=== PATIENT | male | born 1960 | race Caucasian/White ===

== ENCOUNTER 2017-06-14 15:52 | Emergency (ER) | payer OTHER ==
[2017-06-14 16:07] VITALS: BP 164/97
[2017-06-14] MEDS ORDERED: LIDOCAINE 1%-EPI 1:100000 20 ML MDV SUBQ STA (16:09)
[2017-06-14] MEDS ORDERED: TETANUS/DIPHTHERIA/PERTUSSIS 0.5 ML SYRINGE IM ONE (16:12)
[2017-06-14] MEDS ORDERED: BACITRACIN OINT TOP STA (16:24)
--- NOTE | 2017-06-14 16:25 | ED Physician Documentation ---
PD HPI LOWER EXT INJURY - Stated complaint Stated Complaint: R KNEE LAC - Chief complaint Chief Complaint: Laceration - History obtained from History obtained from: Patient - History of Present Illness PD HPI LOW EXT INJURY LOCATION: Right, Knee Type of injury: Laceration Where injury occurred: Work Timing - onset: How many hours ago (1) Timing - duration: Hours (1) Timing - details: Abrupt onset Pain level max: 5 Pain level now: 1 Improved by: Rest Worsened by: Moving, Palpating Associated symptoms: No: Weakness, Numbness, Tingling, Swelling Similar symptoms before: Has not had sx before Recently seen: Not recently seen Review of Systems Neurologic: denies: Focal weakness, Numbness PD PAST MEDICAL HISTORY - Past Medical History Past Medical History: No - Past Surgical History Past Surgical History: Yes HEENT: Other - Present Medications Home Medications: Ambulatory Orders Medication Instructions Recorded Confirmed No Known Home Medications [No 06/14/17 06/14/17 Known Home Medications] - Allergies Allergies/Adverse Reactions: Allergies Allergy/AdvReac Type Severity Reaction Status Date / Time No Known Drug Allergies Allergy Verified 06/14/17 16:00 - Social History Does the pt smoke?: No Smoking Status: Never smoker Does the pt drink ETOH?: Yes Does the pt have substance abuse?: No - Immunizations Immunizations are current?: No Immunizations: TDAP >10years/unknown - POLST Patient has POLST: No PD ED PE NORMAL - Vitals Vital signs reviewed: Yes - General General: Alert and oriented X 3, No acute distress - Derm Derm: Warm and dry - Extremities Extremities: Other (R knee - 5cm flap laceration, deep, undermined. NVI. tendon and joint capsule intact. ) - Neuro Neuro: Alert and oriented X 3 Results - Vitals Vitals: Vital Signs - 24 hr 06/14/17 16:00 Temperature 36.9 C Heart Rate 87 Respiratory 20 Rate Blood Pressure 164/97 H O2 Saturation 97 Oxygen O2 Source Room air Procedures - Laceration (location) R knee Length in cm: 5 Wound type: Irregular, Flap, Into subcut fat, Clean Neurovascular status: Sensory intact, Motor intact, Vascular intact Tendon involvement: Tendon intact Anesthesia: Lidocaine 1% with epi Wound Preparation: Irrigated copiously NS (1L) Skin layer closure: Reanna Other: Patient tolerated well, No complications, Neurovascular intact, Tetanus booster given (tdap) Complexity: Simple PD MEDICAL DECISION MAKING - ED course Complexity details: reviewed results, re-evaluated patient, considered differential, d/w patient ED course: Patient with a laceration to the R knee. skin removed and wound closed. Tolerated well. Warnings of infection and instructions on wound care given at bedside. Also counseled on how to minimize scarring. Patient counseled regarding signs and symptoms for which I believe and urgent re-evaluation would be necessary. Patient with good understanding of and agreement to plan and is comfortable going home at this time This document was made in part using voice recognition software. While efforts are made to proofread this document, sound alike and grammatical errors may occur. L [employer] I paperwork filled out. Departure - Departure Disposition: 01 Home, Self Care Clinical Impression: Laceration of knee Qualifiers: Encounter type: initial encounter Laterality: right Qualified Code(s): S81.011A - Laceration without foreign body, right knee, initial encounter Condition: Good Instructions: ED Laceration Ext Sutr Stap Tape Follow-Up: your,doctor or here in 2 weeks for staple removal [Other] Comments: Return here or follow up with your doctor in 2 weeks for staple removal. Return if you notice redness, swelling, or drainage from the wound. You were given a tetanus shot today. Forms: Activity restrictions Discharge Date/Time: 06/14/17 17:05
--- NOTE | 2017-06-15 10:47 | ED Physician Documentation ---
ED Addendum - Addendum Addendum: 06/15/17 10:46 The patient called to ask for a work release note. His employer will not let him return to work without a note stating he is medically clear. I agreed to write a work release note for him.
== END 2017-06-14 17:05 | disposition home or self-care (01) ==
LOC: ED 15:52
DX: S81.011A Laceration without foreign body, right knee, initial encounter (principal); W22.09XA Striking against other stationary object, initial encounter; Y99.0 Civilian activity done for income or pay; Z23 Encounter for immunization
CPT/HCPCS: 12002; 90471; 90715; 99282; 99283; A9270; 1040M

== ENCOUNTER 2017-06-29 10:42 | Emergency (ER) | payer OTHER ==
[2017-06-29 10:50] VITALS: BP 148/97
--- NOTE | 2017-06-29 11:14 | ED Physician Documentation ---
PD HPI WOUND RECHECK - Stated complaint Stated Complaint: SUTURE REMOVAL - Chief complaint Chief Complaint: Wound - Histroy obtained from History obtained from: Patient - History of Present Illness Location: Right Lower Extremity Recently seen: Emergency Dept (12 days ago.) - Additional information Additional information: The patient is a 56-year-old male who cut his right lower extremity in the infrapatellar region 2 wweks ago, on a metal hitch of a truck. He was seen here and the laceration was repaired at that time. He presents today for suture removal. He denies any complications with the wound. Review of Systems Constitutional: denies: Fever Cardiac: denies: Pedal edema, Calf pain Skin: reports: Laceration (s) Neurologic: denies: Focal weakness, Numbness PD PAST MEDICAL HISTORY - Past Medical History Past Medical History: No Endocrine/Autoimmune: None - Past Surgical History Past Surgical History: Yes HEENT: Other - Present Medications Home Medications: Ambulatory Orders Medication Instructions Recorded Confirmed No Known Home Medications [No 06/14/17 06/14/17 Known Home Medications] - Allergies Allergies/Adverse Reactions: Allergies Allergy/AdvReac Type Severity Reaction Status Date / Time No Known Drug Allergies Allergy Verified 06/29/17 10:45 - Social History Does the pt smoke?: No Smoking Status: Never smoker Does the pt drink ETOH?: Yes Does the pt have substance abuse?: No - Immunizations Immunizations are current?: No Immunizations: TDAP >10years/unknown - POLST Patient has POLST: No PD ED PE NORMAL - Vitals Vital signs reviewed: Yes (Initially hypertensive.) - General General: Alert and oriented X 3, Well developed/nourished - HEENT HEENT: Atraumatic - Respiratory Respiratory: No respiratory distress - Derm Derm: No rash - Extremities Extremities: Other (There is a large laceration at the infrapatellar aspect of the right lower extremity. It is intact with sutures, with no surrounding erythema, swelling, or drainage. Distal neurovascular is intact.) Results - Vitals Vitals: Oxygen O2 Source Room air Procedures - Suture/staple Removal (location) right lower ext. Suture/staple removal: # sutures (12), No complications PD MEDICAL DECISION MAKING - ED course Complexity details: reviewed old records, considered differential, d/w patient ED course: The patient presents with a healing wound of his right lower extremity. There is no evidence of infection, and the healing appears to be proceeding as anticipated. Sutures were removed, and Steri-Strips were applied. I discussed with him the expected course of healing, as well as potentially worrisome signs or symptoms that should prompt reevaluation in the emergency department. Departure - Departure Disposition: 01 Home, Self Care Clinical Impression: Encounter for removal of sutures Condition: Stable Instructions: ED Wound Check Sutr Remove No Infec Comments: Keep the wound clean. Return to the emergency department if you develop any sign of infection, or otherwise worsening symptoms. Forms: Activity restrictions Discharge Date/Time: 06/29/17 11:27
== END 2017-06-29 11:27 | disposition home or self-care (01) ==
LOC: ED 10:42
DX: Z48.02 Encounter for removal of sutures (principal)
CPT/HCPCS: 99283